=== PATIENT | male | born 1980 | race Caucasian/White ===

== ENCOUNTER 2021-09-18 06:59 | Day surgery (SDC) | payer OTHER ==
[~2021-09-18] VITALS: Ht 185.4 cm; Wt 100.0 kg
[2021-09-18] VITALS: BP 147/81
[2021-09-18 07:20] VITALS: BP 137/94
--- NOTE | 2021-09-18 07:20 | NUR ---
PT ARRIVED TO MED/SURG ROOM 274 IN STABLE CONDITION VIA AMBULATION ACCOMPANIED BY JAMA NGUYEN;PT ASSISTED TO BEDSIDE WITH A STEADY GAIT;WT AND VS OBTAINED;PT DENIES ANY CURRENT PAIN OR DISCOMFORTS,PAIN SCALE AND REPORTING EDUCATED;ASSESSMENT COMPLETED;RESPIRATIONS EVEN AND UNLABORED ON RA,CEAR LUNG SOUNDS;ABDOMEN SOFT ON PALPATION AND ACTIVE IN ALL 4 QUADRANTS,LAST BM 09/18/21;STRONG PEDAL PULSES;SKIN INTACT;FALL AND ALLERGY BAND APPLIED TO RIGHT ARM;PT ASSISTED INTO A GOWN, SOCKS AND BRIEF;INFORMED CONSENT OBTAINED FOR ACCELERATED NEURO-REGULATION, ALL S/S OF PROCEDURE DISCUSSED AND PT VERBALIZES UNDERSTANDING;PT ENCOURAGED TO CALL FOR ASSISTANCE IF NEEDED;FALL PRECAUTIONS IN PLACE WITH BED IN THE LOWEST POSITION AND CALL LIGHT IN REACH;WILL CONTINUE TO MONITOR
--- NOTE | 2021-09-18 07:45 | NUR ---
CALL PLACED TO . NEW ORDERS RECEIVED.
--- NOTE | 2021-09-18 08:00 | NUR ---
#20G STARTED TO BY JAMA NGUYEN. ALL LABS SENT TO LAB AT THIS TIME.
--- NOTE | 2021-09-18 08:32 | NUR ---
RT AT BEDSIDE OBTAINING EKG.
[2021-09-18 09:00] LABS: HEMATOCRIT 45.9 % (39.0-50.0); HEMOGLOBIN 15.5 g/dl (14.0-18.0); IMMATURE GRANULOCYTES 0.1 % (0.0-5.0); MEAN CELL VOLUME 88.8 fL CALC (80.0-100.0); MEAN CORPUSCULAR HGB CONC 33.8 g/dL CAL (32.0-36.0); NEUT# 6.05 thou/uL (1.82-7.42); RED BLOOD COUNT 5.17 mill/uL (4.70-6.10); RED CELL DISTRI WIDTH 12.2 % (11.5-15.5)
[2021-09-18 10:20] VITALS: BP 126/62
--- NOTE | 2021-09-18 10:20 | NUR ---
CALL PLACED TO . NEW ORDERS RECEIVED.
[2021-09-18 10:28] LABS: ALBUMIN 4.1 g/dL (3.2-5.0); ALKALINE PHOSPHATASE 90 u/l (38-126); ANION GAP 10 (6-22 (CALC)); BILIRUBIN, TOTAL 0.7 mg/dL (0.0-1.4); BUN 13 mg/dL (9-20); BUN/CREATININE RATIO 17 (12-20 (CALC)); CARBON DIOXIDE 29 mmol/l (22-30); CHLORIDE 101 mmol/l (95-108); CREATININE 0.8 mg/dL (0.7-1.3); GFR > 60 ML/MIN (>=60 (CALC)); GFR FOR AFR.AMER. > 60 ML/MIN (>=60 (CALC)); POTASSIUM 4.4 mmol/l (3.5-5.1); SGOT/AST 35 u/l (17-59); SODIUM 135 mmol/l (137-146); TOTAL PROTEIN 7.1 g/dL (6.3-8.2)
--- NOTE | 2021-09-18 11:25 | NUR ---
BREATHING TX ADMINISTERED AT THIS TIME.
--- NOTE | 2021-09-18 11:50 | NUR ---
PT APPEARS TO BE SLEEPING IN SEMI FOWLERS POSITION;NO S/S OF DISTRESS NOTED;IVF INFUSING WITH EASE PER ORDER;ALL SAFETY PRECAUTIONS REMAIN IN PLACE WITH BED IN THE LOWEST POSITION AND CALL LIGHT IN REACH;WILL CONTINUE TO MONITOR
--- NOTE | 2021-09-18 13:05 | NUR ---
PT TRANSFERRED TO [facility] ROOM AT THIS TIME FOR PROCEDURE VIA HOSPITAL BED ACCOMPANIED BY JAMA NGUYEN AND .
[2021-09-18] MEDS ORDERED: CLONIDINE0.1 MG PO (17:33)
[2021-09-18] MEDS ORDERED: NALTREXONE50 MG PO (17:35)
[2021-09-18] MEDS ORDERED: CLONAZEPAM1 M1 PO (17:36)
--- NOTE | 2021-09-18 18:58 | NUR ---
PT ARRIVED TO MED/SURG ROOM 274 IN STABLE CONDITION VIA HOSPITAL BED ACCOMPANIED BY JAMA NGUYEN AND .REPORT GIVEN TO JAMA RAMSEY.
[2021-09-18 19:00] VITALS: BP 143/86
--- NOTE | 2021-09-18 19:10 | NUR ---
REPORT GIVEN BY EMIGDIO STEVE. PATIENT CURRENTLY IN BED, DISORIENTED WITH SLURRED SPEECH. RESP EVEN AND UNLABORED. NO S/S OF DISTRESS NOTED. FALL AND SAFTEY PRECAUTIONS IN PLACE. 20 L HAND AND 18 R HAND INFUSING FLUIDS. SCOP PATCH BEHIND RIGHT EAR. PLAN OF CARE DISCUSSED. PATIENT INFORMED TO CALL WITH ANY QUESTIONS OR CONCERNS.
--- NOTE | 2021-09-18 20:53 | NUR ---
patient removed iv site
--- NOTE | 2021-09-18 23:27 | NUR ---
PATIENT TALKING TO HIM SELF AND GETTING OUT OF BED EVERY 15 MINS. FALL AND SAFTEY PRECAUTIONS IN PLACE.
--- NOTE | 2021-09-18 23:48 | NUR ---
REQUESTED TO GET UP AND WASH HIS FACE. PATIENT WAS ABLE TO STATE HIS NAME & , THE YEAR, AND HIS LOCATION
[2021-09-19 04:00] VITALS: BP 136/80
[2021-09-19 07:12] LABS: ALBUMIN 4.1 g/dL (3.2-5.0); ALKALINE PHOSPHATASE 111 u/l (38-126); ANION GAP 14 (6-22 (CALC)); BILIRUBIN, TOTAL 0.9 mg/dL (0.0-1.4); BUN 13 mg/dL (9-20); BUN/CREATININE RATIO 15 (12-20 (CALC)); CARBON DIOXIDE 26 mmol/l (22-30); CHLORIDE 103 mmol/l (95-108); CREATININE 0.9 mg/dL (0.7-1.3); GFR > 60 ML/MIN (>=60 (CALC)); GFR FOR AFR.AMER. > 60 ML/MIN (>=60 (CALC)); MAGNESIUM 2.1 mg/dL (1.6-2.3); POTASSIUM 4.1 mmol/l (3.5-5.1); SGOT/AST 29 u/l (17-59); SODIUM 139 mmol/l (137-146); TOTAL PROTEIN 7.1 g/dL (6.3-8.2)
--- NOTE | 2021-09-19 07:15 | NUR ---
REPORT FROM TONI YUN. ASSUMED PT CARE.
[2021-09-19 08:05] VITALS: BP 147/80
[2021-09-19 08:06] VITALS: BP 147/80
--- NOTE | 2021-09-19 08:45 | NUR ---
PT OOB TO SHOWER. PT ABLE TO SHOWER UNASSISTED. CLEAN LINENS PROVIDED. PT DRESSED IN HOME CLOTHES. AMBULATED WITH STEADY GAIT DOWN MORALES. PT ABLE TO PERFORM TASKS APPROPRIATELY. TOLERATING BREAKFAST WELL. PENDING EVALUATION FROM [facility] STAFF. PT BACK INTO ROOM TO REST. CALL LIGHT WITHIN REACH. WILL CONTINUE TO MONITOR.
--- NOTE | 2021-09-19 10:15 | NUR ---
IV site discontinued, cath intact. No edema , no redness, voices no discomfort.
--- NOTE | 2021-09-19 10:18 | NUR ---
Discharge instructions given. Patient verbalizes understanding of same. Discharged in stable condition via Ambulatory to Home with family. All belongings sent with pt.
== END 2021-09-19 10:18 | disposition home or self-care (01) | DRG 897 ==
LOC: ANR 06:59 → MS2 07:27 → ANR 08:35
PROVIDERS: ATTEND Anesthesiology
DX: F11.20 Opioid dependence, uncomplicated (principal)
CPT/HCPCS: J2060; J2354